=== PATIENT | male | born 2000 | race Two or more races ===

== ENCOUNTER 2025-06-23 23:34 | Emergency (ER) | payer BC, SELFPAY ==
[2025-06-23 23:47] VITALS: BP 134/85; PULSE 111; RESP 20; TEMP 36.5; O2SAT 96; BMI 22.5
[2025-06-24] MEDS: LIDOCAINE HCL 1% 20 ML VIAL IM (00:15)
--- NOTE | 2025-06-24 00:19 | PD.EDWOUND ---
ED Wound/Laceration-RME/HPI General Chief Complaint: Wound/Laceration Stated Complaint: LAC TO RIGHT HAND FINGER Time Seen by Provider: 06/23/25 23:50 Arrival date/time: 06/23/25 23:34 This is a case of 25-year-old male with no medical history came into the emergency room due to laceration on the third finger right hand patient was washing dishes accidentally broke a glass and cut his finger patient sustained a 2 laceration on the finger approximately 5 cm long no other injury noted patient tetanus shot is up-to-date Limitations: no limitations Related Data Home Medications ?Medication ?Instructions ?Recorded ?Confirmed albuterol sulfate 90 mcg/actuation inhalation ##0 10/01/09 aerosol inhaler (Ventolin HFA) beclomethasone dipropionate 80 inhalation DAILY ##0 10/01/09 mcg/actuation aerosol inhaler (Qvar) EYE DROPS FOR CONJUNTIVITIS 1 drp OP ##0 11/05/12 LORATADINE (CLARITIN) 1 tab PO DAILY ##0 11/05/12 Previous Rx's ?Medication ?Instructions ?Recorded Acetaminophen With Codeine 1 tab PO [id number] ##14 11/05/12 (Tylenol W-Codeine #3 Tablet) ibuprofen 800 mg tablet 800 mg PO TID #30 tabs 10/09/19 amoxicillin 875 mg-potassium 1 tab PO BID #20 tabs 01/07/24 clavulanate 125 mg tablet cephalexin 500 mg capsule 500 mg PO Q8H 10 days #30 caps 06/24/25 ibuprofen 600 mg tablet 600 mg PO Q8H PRN pain #20 tabs 06/24/25 mupirocin 2 % topical ointment 1 applic topical BID #22 grams 06/24/25 (Centany) Allergies Allergy/AdvReac Type Severity Reaction Status Date / Time No Known Allergies Allergy Verified 06/23/25 23:35 Review of Systems Review of Systems Systems Reviewed: All systems reviewed, normal except as documented Past Medical History Past Medical History CARDIAC: Negative Cardiac Disorders or Congestive Heart Failure RESPIRATORY: Negative Chronic Obstructive Pulmonary Disease (COPD) or Asthma GENITOURINARY: Negative Renal Disease ENDOCRINE: Negative Diabetes Mellitus Type 1 or Diabetes Mellitus Type 2 HEMATOLOGIC: Negative Sickle Cell Disease Social History SMOKING STATUS: Never smoker ED Exam General Limitations: Present no limitations General appearance: Present alert, in no apparent distress and other (Patient is awake alert oriented not in distress nontoxic looking well-hydrated well-nourished) Head Head exam: Present atraumatic, normocephalic and normal inspection Eye Eye exam: Present normal appearance, PERRL and EOMI ENT ENT exam: Present normal exam, normal oropharynx and mucous membranes moist Neck Neck exam: Present normal inspection, full ROM and trachea midline Chest Chest inspection: Present normal inspection and symmetric chest wall rise Respiratory Respiratory exam: Present normal lung sounds bilaterally Cardiovascular Cardiovascular exam: Present regular rate, normal rhythm and normal heart sounds Abdominal Exam Abdominal exam: Present soft and normal bowel sounds Extremities Exam Extremities exam: Present normal inspection and full ROM Back Exam Back exam: Present normal inspection and full ROM Neurological Exam Neurological exam: Present alert, oriented X3, CN II-XII intact, normal gait and reflexes normal; Absent motor sensory deficit Psychiatric Psychiatric exam: Present normal affect and normal mood Skin Skin exam: Present warm, dry, intact, normal color and other (Patient sustained 2 laceration on the third finger right hand 1 is 2 cm linear laceration on the middle phalanx third finger and flap laceration 3 cm on the distal third finger minimal bleeding no foreign body no tendon or bone injury ROM intact pulses were full and equal capillary refill less than ) Course Quality Measures none Orders Category Date Time Status Lidocaine 1% Vial 20 ml [Xylocaine 1% 20 ML] Med 06/23/25 23:57 Discontinued 20 ml IM X1 ONE Vital Signs Vital signs: Vital Signs Temperature 97.7 F 06/23/25 23:47 Pulse Rate 111 H 06/23/25 23:47 Respiratory Rate 20 06/23/25 23:47 Blood Pressure 134/85 H 06/23/25 23:47 Pulse Oximetry (%) 96 06/23/25 23:47 Oxygen Delivery Method Room Air 06/23/25 23:47 Oxygen saturation is 96% in room PROCEDURES: Laceration Laceration 1: Site: other (Third finger right hand) Side (If applicable): right Size (cm): 5 Description: flap Depth: simple, single layer Local Anesthetic: lidocaine 1% Amount of anesthesia used (mL): 4 Pre-repair: wound explored, irrigated extensively and deep structures intact Skin layer closed with: nylon Suture size (cm): 4-0 Number of sutures: 8 Technique: simple, interrupted Wound / Laceration MDM Narrative MDM Narrative:: This is a case of 25-year-old male with no medical history came into the emergency room due to laceration on the third finger right hand patient was washing dishes accidentally broke a glass and cut his finger patient sustained a 2 laceration on the finger approximately 5 cm long no other injury noted patient tetanus shot is up-to-date physical examination patient is awake alert oriented not in distress nontoxic looking vital signs stable not tachycardic not tachypneic BP stable not hypoxic oxygen saturation is 97-98 percent on room air patient sustained a 2 laceration on the third finger right hand total of 5 cm laceration flap laceration minimal bleeding no foreign no bone or tendon injury nail is intact ROM is intact pulses were full and equal capillary refill less than 2 seconds sensory is intact laceration repair was performed patient tolerated well the procedure no complication noted procedure done by [place] protocol and via sterile technique patient will follow-up with PCP in 2 days for reevaluation and wound check in 10 days for removal of suture for any signs and symptoms of infection worsening symptoms return precaution in the ER is advised patient was discharged with cephalexin mupirocin to prevent infection and Motrin for pain Patient was discharged with comfortable condition walking with stable gait. Patient verbalized no further complains explained diagnosis and answered patient question. Patient is comfortable with the proposed management plan including the need to follow up with his/her primary care physician and any specialist if applicable Discussed patient for any urgent condition or worsening sx, He/She needed to go to emergency room immediately or call 911. Patient acknowledge the responsibility to follow up as instructed and to monitor her/his symptoms. For any persistence of the symptoms for more than 3-5 days return precaution advised. Discussed the result of the test and was given printed discharge instruction Patient data External records reviewed:: [facility] previous records Clinical information provided by:: patient Social determinants that could affect healthcare access:: none Patient has the following chronic illnesses:: None How is presenting disease/condition affected by chronic disease/condition?: no chronic disease Evaluation data The following diagnostics were reviewed and interpreted by me:: other (specify) (None) Lab and/or radiology exams considered but not ordered:: None Interpretation Summary: None Medications / Prescriptions Medications or Prescriptions considered but not ordered:: Given Medication administrations:: Medication Administration History Discontinued Medications Lidocaine HCl (Lidocaine Hcl 1% 20 Ml Vial) 20 ml IM X1 ONE Stop: 06/23/25 23:58 Last Admin: 06/24/25 00:15 Dose: 20 ml Documented By: AARON Comments: ADMINISTERED BY PROVIDER KORINA Given Consultations Consultation(s) initiated? (list below): No Diagnosis Wound Differential Diagnosis: laceration Most likely diagnosis given after review of the tests above:: Finger laceration Admission Indicated Admission indicated?: not indicated Explain why admission is indicated or not indicated:: Not indicated Admission Request Was there a request for admission?: No Admission Attestation Admission request attestation: Not indicated Disposition Plan Disposition Plan: Discharge Discharge Attestation Discharge Attestation: The patient and all family members were given an opportunity to ask questions and understood the discharge instructions. Discharge instructions specifically effects, indications for sooner follow up or return to the emergency department, and the expected course of current diagnosis. Patient condition: Stable Discharge Plan Plan Patient Disposition: HOME (Self Care) Patient condition on transfer: Stable Prescriptions/Referrals Prescriptions/Med Rec: New cephalexin 500 mg capsule 500 mg PO Q8H 10 Days Qty: 30 0RF mupirocin [Centany] 2 % ointment 1 applic topical BID Qty: 22 0RF ibuprofen 600 mg tablet 600 mg PO Q8H PRN (Reason: pain) Qty: 20 0RF No Action beclomethasone dipropionate [Qvar] 7.3 GM aerosol Inhalation DAILY Qty: 0 albuterol sulfate [Ventolin HFA] 200 PUFF/INH HFA aerosol inhaler Inhalation Qty: 0 EYE DROPS FOR CONJUNTIVITIS 1 drp OP Qty: 0 LORATADINE (CLARITIN) 10 MG capsule 1 tab PO DAILY Qty: 0 Acetaminophen With Codeine (Tylenol W-Codeine #3 Tablet) 1 TAB tablet 1 tab PO [id number] Qty: 14 0RF ibuprofen 800 mg tablet 800 mg PO TID Qty: 30 0RF amoxicillin-pot clavulanate 875-125 mg tablet 1 tab PO BID Qty: 20 0RF Referrals: No Primary/Family,Physician [Primary Care Provider] - In 1 week Problem List Clinical Impression: Finger laceration Patient/Caregiver Discharge Instructions Education Materials: Suture Care, ED Laceration: All Closures Additional Instructions: Follow-up with your primary care physician in 2 days for reevaluation and wound check in 10 days for removal of suture worsening symptoms or any emergent concerns such as redness swelling discharge from the wound pain fever chills return to the emergency room immediately or call 911 keep the wound clean and dry take your medication as directed finish the course of antibiotic Print Language: Cam[place]onian Stand Alone Forms: Mar Award Info., Patient Portal Info Letter PA/PROJ MGR Supervising Physician PA/PROJ MGR Supervising Physician: Dr. Durand
== END 2025-06-24 00:38 | disposition home or self-care (01) ==
PROVIDERS: Emergency Provider Emergency Medicine
DX: S61.218A Laceration without foreign body of other finger without damage to nail, initial encounter (principal); W25.XXXA Contact with sharp glass, initial encounter; Y93.G1 Activity, food preparation and clean up
CPT/HCPCS: 12002; 96372; 99281; J3490